=== PATIENT | male | born 1985 | race American Indian/Alaskan Native ===

== ENCOUNTER 2017-07-28 03:42 | Emergency (ER) | payer SELFPAY ==
[2017-07-28 03:48] VITALS: BP 129/74
--- NOTE | 2017-07-28 07:35 | Emergency Department Report ---
- General Chief complaint: Skin/Abscess/Foreign Body Stated complaint: SPIDER BITE LT LEG Time Seen by Provider: 07/28/17 07:29 Source: patient Mode of arrival: Ambulatory Limitations: No Limitations - History of Present Illness Initial comments: Pt reports that he had a couple "bumps" on his L upper thigh that he popped and now states they are more painful. Denies other complaints. complaint: abscess/boil -: Gradual, days(s) (3) Location: LLE Severity: moderate Severity scale (0 -10): 5 Quality: aching Consistency: constant Improves with: none Worsens with: none Context: none Associated symptoms: denies other symptoms Treatments Prior to Arrival: attempted to drain pus at - Related Data Previous Rx's Medication Instructions Recorded Last Taken Type Diclofenac Dr [Voltaren Dr] 75 mg PO BID PRN #20 tablet 07/28/17 Unknown Rx Sulfamethoxazole/Trimethoprim 1 each PO BID #20 tablet 07/28/17 Unknown Rx [Bactrim DS TAB] Abscess Boil HPI - HPI Chief Complaint: Skin/Abscess/Foreign Body Stated Complaint: SPIDER BITE LT LEG Time Seen by Provider: 07/28/17 07:29 Home Medications: Previous Rx's Medication Instructions Recorded Last Taken Type Diclofenac Dr [Voltaren Dr] 75 mg PO BID PRN #20 tablet 07/28/17 Unknown Rx Sulfamethoxazole/Trimethoprim 1 each PO BID #20 tablet 07/28/17 Unknown Rx [Bactrim DS TAB] ED Review of Systems ROS: Stated complaint: SPIDER BITE LT LEG Other details as noted in HPI Comment: All other systems reviewed and negative Constitutional: denies: chills, fever Eyes: denies: eye pain, eye discharge, vision change ENT: denies: ear pain, throat pain Respiratory: denies: cough, shortness of breath, wheezing Cardiovascular: denies: chest pain, palpitations Endocrine: no symptoms reported Gastrointestinal: denies: abdominal pain, nausea, diarrhea Genitourinary: denies: urgency, dysuria Musculoskeletal: denies: back pain, joint swelling, arthralgia Skin: as per HPI. denies: rash, lesions Neurological: denies: headache, weakness, paresthesias Psychiatric: denies: anxiety, depression Hematological/Lymphatic: denies: easy bleeding, easy bruising ED Past Medical Hx - Past Medical History Previous Medical History?: No - Surgical History Past Surgical History?: No - Social History Smoking Status: Never Smoker Substance Use Type: None - Medications Home Medications: Home Medications Medication Instructions Recorded Confirmed Last Taken Type Diclofenac Dr [Voltarecristiana Raphael] 75 mg PO BID PRN #20 tablet 07/28/17 Unknown Rx Sulfamethoxazole/Trimethoprim 1 each PO BID #20 tablet 07/28/17 Unknown Rx [Bactrim DS TAB] ED Physical Exam - General Limitations: No Limitations General appearance: alert, in no apparent distress - Head Head exam: Present: atraumatic, normocephalic - Eye Eye exam: Present: normal appearance - ENT ENT exam: Present: mucous membranes moist - Neck Neck exam: Present: normal inspection - Respiratory Respiratory exam: Present: normal lung sounds bilaterally. Absent: respiratory distress - Cardiovascular Cardiovascular Exam: Present: regular rate, normal rhythm. Absent: systolic murmur, diastolic murmur, rubs, gallop - GI/Abdominal GI/Abdominal exam: Present: soft, normal bowel sounds - Rectal Rectal exam: Present: deferred - Extremities Exam Extremities exam: Present: normal inspection - Back Exam Back exam: Present: normal inspection - Neurological Exam Neurological exam: Present: alert, oriented X3 - Psychiatric Psychiatric exam: Present: normal affect, normal mood - Skin Skin exam: Present: warm, dry, intact, other (There is an approximate 3x3 cm area of induration/ mild erythema to the upper thigh without fluctuance. There is a smaller area of mild erythema and tenderness to the L groin without fluctuance. ). Absent: rash ED Course Vital Signs 07/28/17 03:45 Temperature 99.0 F Pulse Rate 87 Respiratory 17 Rate Blood Pressure 129/74 O2 Sat by Pulse 99 Oximetry - Reevaluation(s) Reevaluation #1: 07/28/17 07:33 NAD. Stable for d/c. ED Medical Decision Making - Medical Decision Making No definite fluid collection for drainage currently. Will start on Bactrim DS, supportive care at home, and follow up with PCP in 3 days. - Differential Diagnosis abscess, cellulitis Critical care attestation.: If time is entered above; I have spent that time in minutes in the direct care of this critically ill patient, excluding procedure time. ED Disposition Clinical Impression: Cellulitis of leg Qualifiers: Laterality: left Qualified Code(s): L03.116 - Cellulitis of left lower limb Disposition: - TO HOME OR SELFCARE Is pt being admited?: No Does the pt Need Aspirin: No Condition: Good Instructions: Abscess (ED), Cellulitis (ED) Prescriptions: Diclofenac Dr [Voltaren Dr] 75 mg PO BID PRN #20 tablet PRN Reason: Pain Sulfamethoxazole/Trimethoprim [Bactrim DS TAB] 1 each PO BID #20 tablet Referrals: PRIMARY CARE, [Primary Care Provider] - 3-5 Days ERIC VELA MD [Staff Physician] - 3-5 Days Time of Disposition: 07:35
== END 2017-07-28 08:01 | disposition home or self-care (01) ==
LOC: ED 03:42
DX: L03.116 Cellulitis of left lower limb (principal)
CPT/HCPCS: 99282